=== PATIENT | male | born 1965 | race Hispanic/Latino ===

== ENCOUNTER 2020-05-08 18:24 | Emergency (ER) | payer SELFPAY ==
[~2020-05-08] VITALS: Ht 175.3 cm; Wt 131.5 kg
[2020-05-08] MEDS ORDERED: DIPHENHYDRAMINE HCL 25 MG CAP PO STA (21:27)
[2020-05-08] MEDS ORDERED: FAMOTIDINE 20 MG TAB PO STA (21:27)
[2020-05-08] MEDS ORDERED: PREDNISONE 20 MG TAB PO STA (21:27)
--- NOTE | 2020-05-08 21:29 | Emergency Department Note ---
History of Present Illnes History of Present Illness Chief Complaint: General Medicine Complaints History of Present Illness This is a 55 year old male rash of 2 weeks duration. Historian: Patient Arrival Mode: Car Onset (how long ago): week(s) Radiation: Reports extremity Severity: moderate Onset quality: sudden Duration (how long): week(s) Progression: unchanged Chronicity: new Context: Denies recent illness, Denies recent surgery, Denies recent immobilization, Denies recent travel, Denies trauma/injury, Denies new medications, Denies hx of DVT/PE, Denies non-compliance w/ medications, Denies other Relieving factors: medication Associated symptoms: Reports rash Treatments prior to arrival: other (benadryl, steroid cream) Previous service: re-evaluation, other (Seen at x 2) Past Medical/Family History Physician Review I have reviewed the patient's past medical and family history. Any updates have been documented here. Past Medical History Recent Fever: No Clinical Suspicion of Infectio: Yes New/Unexplained Change in Ment: No Past Medical History: Hypertension, Diabetes, Hyperlipedemia Other Surgery: LEFT HAND SURGERY Social History Smoking Cessation: Never Smoker Alcohol Use: Occasional Any Illegal Drug Use: No Review of Systems Review of Systems Constitutional: Reports no symptoms EENTM: Reports no symptoms Cardiovascular: Reports no symptoms Respiratory: Reports no symptoms Gastrointestinal: Reports no symptoms Genitourinary: Reports no symptoms Musculoskeletal: Reports no symptoms Integumentary: Reports rash Neurological: Reports no symptoms Psychological: Reports no symptoms Endocrine: Reports no symptoms Hematological/Lymphatic: Reports no symptoms Physical Exam Related Data Allergies: Coded Allergies: No Known Allergies (Unverified , 05/08/20) Triage Vital Signs Vital Signs Date Time Temp Pulse Resp B/P (MAP) Pulse Ox O2 Delivery O2 Flow Rate FiO2 05/08/20 18:33 98.6 94 20 168/102 98 Room Air Vital signs reviewed: Yes Physical Exam CONSTITUTIONAL Constitutional: Present well-developed, Present well-nourished HENT HENT: Present normocephalic, Present atraumatic, Present oropharynx clear/moist, Present nose normal HENT L/R: Present left ext ear normal, Present right ext ear normal EYES Eyes: Reports PERRL, Reports conjunctivae normal NECK Neck: Present ROM normal PULMONARY Pulmonary: Present effort normal, Present breath sounds normal CARDIOVASCULAR Cardiovascular: Present regular rhythm, Present heart sounds normal, Present capillary refill normal, Present normal rate GASTROINTESTINAL Abdominal: Present soft, Present nontender, Present bowel sounds normal GENITOURINARY Genitourinary: Present exam deferred SKIN Skin: Present rash, Present other (well demarcated weals b/l LE and Upper chest wall regoin) MUSCULOSKELETAL Musculoskeletal: Present ROM normal NEUROLOGICAL Neurological: Present alert, Present oriented x 3, Present no gross motor or sensory deficits PSYCHOLOGICAL Psychological: Present mood/affect normal, Present judgement normal Assessment & Plan Medical Decision Making MDM Diff Dx : urticaria, Larry gaurav syndrome, seborrheic dermatitis, tinea corporis, heat rash Assessment & Plan Final Impression: (1) Urticaria Last Vital Signs Date Time Temp Pulse Resp B/P (MAP) Pulse Ox O2 Delivery O2 Flow Rate FiO2 05/08/20 18:33 98.6 94 20 168/102 98 Room Air LOUISDAFNE May 08, 2020 21:29
[2020-05-08] MEDS ORDERED: EPINEPHRINE HCL 1:1000 1ML 1 MG/ML AMP INJ ONE (21:30)
[2020-05-08] MEDS ORDERED: PREDNISONE 20 MG TAB ONE (21:40)
[2020-05-08] MEDS ORDERED: FAMOTIDINE 20 MG TAB ONE (21:40)
[2020-05-08] MEDS ORDERED: DIPHENHYDRAMINE HCL 25 MG CAP ONE (21:40)
== END 2020-05-08 22:18 | disposition home or self-care (01) ==
LOC: ER 19:08
DX: L50.9 Urticaria, unspecified (principal); I10 Essential (primary) hypertension; E11.9 Type 2 diabetes mellitus without complications; E78.5 Hyperlipidemia, unspecified
CPT/HCPCS: 99282; J0171; J7512